=== PATIENT | male | born 1990 | race Caucasian/White ===

== ENCOUNTER 2019-11-21 06:21 | Day surgery (SDC) | payer OTHER ==
[~2019-11-21 06:21] MED LIST: ACETAMINOPHEN 1,000 MG/100 ML BTL IVPB ONE; CEFAZOLIN 2 Gram 2 GM/50 ML BAG IVPB ONE
[2019-11-21] MEDS ORDERED: BUPIVACAINE 0.25% MPF 30ML VIAL IVP ONE (06:22)
[2019-11-21] MEDS ORDERED: KETOROLAC 30 MG/ML VIAL IVP ONE (06:22)
[2019-11-21] MEDS ORDERED: FENTANYL PF 100MCG/2ML VIAL IV ONE (06:22)
[2019-11-21] MEDS ORDERED: SEVOFLURANE 250 ML INH ONE (06:22)
[2019-11-21] MEDS ORDERED: BUPIVACAINE LIPOSOME/PF 133MG/10ML VIAL IV ONE (06:22)
[2019-11-21] MEDS ORDERED: LIDOCAINE 2% MDV (20MG/ML) 20ML VIAL IV ONE (06:22)
[2019-11-21] MEDS ORDERED: PROPOFOL 10 MG/ML VIAL IV ONE (06:22)
[2019-11-21] MEDS ORDERED: ONDANSETRON HCL IV 4 MG/2 ML VIAL IVP ONE (06:22)
[2019-11-21] MEDS ORDERED: DEXAMETHASONE 4 MG/ML 1ML VIAL IVP ONE ×2 (06:22)
[2019-11-21] MEDS ORDERED: MIDAZOLAM HCL 2MG/2ML VIAL IV ONE (06:22)
[2019-11-21] MEDS ORDERED: RINGERS SOLUTION,LACTATED 1,000 ML IV ONE ×2 (06:45→08:45)
--- NOTE | 2019-11-21 12:26 | Operative Note ---
DATE OF SURGERY: 11/21/2019 SURGEON: Ronald Veras D.O. 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 OPERATION: ARTHROSCOPIC REPAIR SUPERIOR GLENOID LABRUM LEFT SHOULDER. DESCRIPTION: This 29-year-old male was taken to the Operating Room and placed in the supine position on the operating room table. A general anesthetic was administered and the patient was placed in the beach chair position with all bony prominences well padded and the head well secured. The left shoulder was then prepped with Hibiclens and draped in the usual sterile fashion. A posterior portal was established in the glenohumeral joint and initial evaluation of the joint demonstrated normal appearance of the subscapularis glenohumeral ligaments and rotator cuff. The (supraspinatus) patient did have some fraying of the superior and anterior glenoid labrum through an anterior portal, this was debrided and then we were able to probe the labrum and it was seen to have a vertical component to the tear just anterior to the biceps attachment. The detachment was from approximately the 11:00 o'clock position to about the 1:00-1:30 position and utilizing the rotating shaver we debrided down to bone, used a rasp to further roughen the bone and this was again debrided to remove all loose debris from the joint. The undersurface of the labrum as also debrided. We then placed two push lock anchors 3.5 mm and one was placed anterior to the biceps and the second was placed through a separate incision posterolaterally and another anchor was placed posterior to the biceps for excellent secure fixation of the superior glenoid labrum. We then probed the tissue and it was very stable and we then copiously irrigated the joint and the instruments were removed. The portals were closed with 4-0 nylon suture and sterile dressings were applied with a sling and the patient was taken to the Recovery Room in satisfactory condition. GROSS PATHOLOGY: This patient demonstrated a Type 3 disruption of the superior labrum, a vertical component was present at approximately the 11:00 o'clock position, this was debrided, the remainder of the labrum appeared to be healthy tissue and after debridement we were able to reapproximate it to its anatomical position. We did not close the Temitope lesion. JOB NUMBER: [id number] [facility]
== END 2019-11-21 09:50 | disposition home or self-care (01) ==
LOC: SUR 06:21
PROVIDERS: ATTEND Orthopaedic Surgery
DX: S43.431A Superior glenoid labrum lesion of right shoulder, initial encounter (principal); F17.210 Nicotine dependence, cigarettes, uncomplicated
CPT/HCPCS: 29807; 01630; 64415; J1885; J2405; J3010; J0690; 76942; C9290; J7120